=== PATIENT | male | born 1990 | race Native Hawaiian/Other Pacific Islander ===

== ENCOUNTER 2016-11-20 20:16 | Emergency (ER) | payer OTHER ==
[~2016-11-20] VITALS: Ht 175.3 cm; Wt 65.9 kg
[2016-11-20 20:19] VITALS: BP 142/82; TEMP 98.1
[2016-11-20] MEDS ORDERED: VYVANSE40 MG PO (20:21)
[2016-11-20] MEDS ORDERED: NIZORAL CR 30GM TOP (21:08)
[2016-11-20 22:44] VITALS: PULSE 61
== END 2016-11-20 22:00 | disposition home or self-care (01) ==
LOC: COL.ER 20:16
DX: B36.0 Pityriasis versicolor (principal)